=== PATIENT | female | born 1985 | race Caucasian/White ===

== ENCOUNTER 2021-07-15 08:37 | Day surgery (SDC) | payer MEDICAID, SELFPAY ==
[~2021-07-15] VITALS: Ht 167.6 cm; Wt 106.6 kg
[2021-07-15 09:39] LABS: HCG,QUAL RESULT NEGATIVE (NEGATIVE)
[2021-07-15] MEDS ORDERED: MEPERIDINE 100 MG INJ. 100 MG/ML VIAL ONE (09:44)
[2021-07-15] MEDS ORDERED: MIDAZOLAM HCL 5 MG/5 ML VIAL ONE ×2 (09:45→10:30)
[2021-07-15 11:13] VITALS: BP_SYST 151
== END 2021-07-15 11:25 | disposition home or self-care (01) ==
LOC: SDS 08:37 → SMU 08:39 → SDS 11:25
PROVIDERS: ATTEND Internal Medicine Gastroenterology
DX: R19.4 Change in bowel habit (principal); R10.9 Unspecified abdominal pain; Z87.891 Personal history of nicotine dependence; Z20.822 Contact with and (suspected) exposure to COVID-19; Z79.899 Other long term (current) drug therapy
CPT/HCPCS: 45380; 84703; 88305; 99152; 99153; G0378; J2175; J2250; U0003